=== PATIENT | female | born 1990 | race American Indian/Alaskan Native ===

== ENCOUNTER 2020-07-18 13:03 | Emergency (ER) | payer SELFPAY ==
[2020-07-18 14:03] VITALS: BP 128/86
--- NOTE | 2020-07-18 14:19 | Emergency Department Report ---
ED HPI - General Chief complaint: Urogenital-Female Stated complaint: 17 WKS PREG LEAKING Source: patient Mode of arrival: Ambulatory Limitations: No Limitations - History of Present Illness Initial comments: 29-year-old -[place] female that is 1 para 0 reports that she is 17 weeks presents to the emergency room stating she felt a gush of liqu id running down her leg. Patient states that she was in the shower and had voided prior to going to get in the shower. Patient states that the discharge was clear. Patient denies any vaginal bleeding denies any abdominal cramping. This happened just 1 hour prior to arrival. Her last menstrual period was 03/22/2020. Patient states she has a past medical history of anxiety and takes Prozac. Patient states that she takes Zyrtec Singulair probiotics and is currently being treated with metronidazole for bacterial vaginosis. Patient reports her EMS DIRECTOR doctor is Dr. Barlow at [facility]. 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 Number of weeks : 17 OB History - Current : no complications Last menstrual period: 03/22/20 Pre-sugey care: followed by OB ([place]) - Related Data : 1 Allergies Allergy/AdvReac Type Severity Reaction Status Date / Time No Known Allergies Allergy Unverified 07/18/20 13:12 ED Review of Systems ROS: Stated complaint: 17 WKS PREG LEAKING Other details as noted in HPI ED Past Medical Hx - Past Medical History Previous Medical History?: No - Surgical History Past Surgical History?: No - Social History Smoking Status: Never Smoker Substance Use Type: None ED Physical Exam - General Limitations: No Limitations General appearance: alert, in no apparent distress - Head Head exam: Present: atraumatic, normocephalic - Eye Eye exam: Present: normal appearance - ENT ENT exam: Present: mucous membranes moist - Neck Neck exam: Present: normal inspection, full ROM - Cardiovascular Cardiovascular Exam: Present: regular rate, normal rhythm. Absent: systolic murmur, diastolic murmur, rubs, gallop - GI/Abdominal GI/Abdominal exam: Present: soft. Absent: distended, tenderness, guarding - Extremities Exam Extremities exam: Present: normal inspection, full ROM - Back Exam Back exam: Present: normal inspection, full ROM - Neurological Exam Neurological exam: Present: alert, oriented X3, normal gait - Psychiatric Psychiatric exam: Present: normal affect, normal mood - Skin Skin exam: Present: warm, dry, intact, normal color. Absent: rash ED Course Vital Signs 07/18/20 14:01 Temperature 98.2 F Pulse Rate 89 Respiratory 16 Rate Blood Pressure 128/86 O2 Sat by Pulse 98 Oximetry ED Medical Decision Making - Lab Data Result diagrams: 07/18/20 14:14 07/18/20 14:14 - Radiology Data Radiology results: report reviewed [facility] [address] [place] [address] Ultrasound Report Signed Patient: CLARE MANZANO MR#: [id number] : 1990 Acct:[id number] Age/Sex: 29 / F ADM Date: 07/18/20 Loc: ED Attending Dr: Ordering Physician: JUAN ROBERTSON Date of Service: 07/18/20 Procedure(s): US OB >= 14 weeks Fetus Accession Number(s): [id number] cc: JUAN ROBERTSON ULTRASOUND OBSTETRIC INDICATION / CLINICAL INFORMATION: , felt gush of clear fluids. Clinical Gestational Age (GA): 16.6 weeks.days TECHNIQUE: Transabdominal. COMPARISON: None available. FINDINGS: There is a single intrauterine . Biparietal Diameter = 3.9 cm = 17.5 weeks.days Head Circumference = 14.2 cm = 17.3 weeks.days Abdominal Circumference = 11.1 cm = 16.6 weeks.days Femur Length = 2.4 cm = 17.2 weeks.days Average Ultrasound Age (AUA) = 17.2 weeks.days Heart Rate: 144 beats per minute. Estimated Weight in grams (if calculated): 184 Estimated Weight Growth Percentile (if calculated): Not calculated Position: breech. Cervix: closed. Length in cm (if measured): 3.7 Placenta: posterior and free of the os. Amniotic Fluid Volume: normal Amniotic Fluid Index (BRIGIDA) in cm (if calculated): Not calculated. Maternal Adnexa: Not visualized. IMPRESSION: 1. Single, living intrauterine with estimated sonographic age of 17.2 weeks.days 2. No acute sonographic abnormality. Signer Name: Star Jeffers MD Signed: 07/18/2020 3:26 PM Workstation Name: [id number] Transcribed By: DT Dictated By: Nick Jeffers MD Electronically Authenticated By: Nick Jeffers MD Signed Date/Time: 07/18/201525 DD/ 23 TD/TT: - Medical Decision Making 29-year-old -[place] female that is 1 para 0 reports that she is 17 weeks presents to the emergency room stating she felt a gush of liquid running down her leg. Patient states that she was in the shower and had voided prior to going to get in the shower. Patient states that the discharge was clear. Patient denies any vaginal bleeding denies any abdominal cramping. This happened just 1 hour prior to arrival. Her last menstrual period was 03/22/2020. Patient states she has a past medical history of anxiety and takes Prozac. Patient states that she takes Zyrtec Singulair probiotics and is currently being treated with metronidazole for bacterial vaginosis. Patient reports her EMS DIRECTOR doctor is Dr. Barlow at [facility]. CBC within normal limits hCG 9600s. Ultrasound shows a gestational 17 weeks and 2 days with no abnormalities. Urinalysis was negative for any acute findings. Patient is to follow-up with her EMS DIRECTOR in the next 2 to 3 days. Critical care attestation.: If time is entered above; I have spent that time in minutes in the direct care of this critically ill patient, excluding procedure time. ED Disposition Clinical Impression: Concern about complication without diagnosis Disposition: -01 TO HOME OR SELFCARE Is pt being admited?: No Does the pt Need Aspirin: No Condition: Stable Additional Instructions: Labs are all within normal limits. Ultrasound shows a 17-week 2-day with no acute abnormalities. I recommend for you to follow-up with your EMS DIRECTOR in the next 2 to 3 days for reevaluation. Referrals: ALEKSANDR PLASENCIA MD [Staff Physician] - 3-5 Days Forms: Work/School Release Form(ED)
[2020-07-18 14:41] LABS: Bacteria,Urine 1+ /HPF (Negative); Bilirubin,Urine NEG (Negative); Blood,Urine NEG (Negative); Color,Urine Yellow (Yellow); Mucus,Urine FEW /HPF; Protein,Urine <15 mg/dL mg/dL (Negative); Urobilinogen,Urine < 2.0 mg/dL (<2.0)
[2020-07-18 14:50] LABS: Basophils % (Auto) 0.2 % (0.0-1.8); Eosinophils % (Auto) 0.3 % (0.0-4.3); Hematocrit 34.7 % (30.3-42.9); Hemoglobin 11.4 gm/dl (10.1-14.3); Lymphocytes # (Auto) 1.6 K/mm3 (1.2-5.4); Lymphocytes % (Auto) 15.5 % (13.4-35.0); Mean Corpuscular HGB Conc 33 % (30-34); Mean Corpuscular Volume 81 fl (79-97); Monocytes # (Auto) 0.5 K/mm3 (0.0-0.8); Monocytes % (Auto) 4.6 % (0.0-7.3); Platelet Count 252 K/mm3 (140-440); Red Cell Distribution Width 14.2 % (13.2-15.2)
[2020-07-18 15:05] LABS: Alanine Aminotransferase 19 units/L (7-56); Albumin 4.1 g/dL (3.9-5); Blood Urea Nitrogen 8 mg/dL (7-17); Calcium 9.1 mg/dL (8.4-10.2); Hemolysis Index 0
[2020-07-18 15:10] LABS: BUN/Creatinine Ratio 16
--- NOTE | 2020-07-18 15:31 | Ultrasound Report ---
ULTRASOUND OBSTETRIC INDICATION / CLINICAL INFORMATION: , felt gush of clear fluids. Clinical Gestational Age (GA): 16.6 weeks.days TECHNIQUE: Transabdominal. COMPARISON: None available. FINDINGS: There is a single intrauterine . Biparietal Diameter = 3.9 cm = 17.5 weeks.days Head Circumference = 14.2 cm = 17.3 weeks.days Abdominal Circumference = 11.1 cm = 16.6 weeks.days Femur Length = 2.4 cm = 17.2 weeks.days Average Ultrasound Age (AUA) = 17.2 weeks.days Heart Rate: 144 beats per minute. Estimated Weight in grams (if calculated): 184 Estimated Weight Growth Percentile (if calculated): Not calculated Position: breech. Cervix: closed. Length in cm (if measured): 3.7 Placenta: posterior and free of the os. Amniotic Fluid Volume: normal Amniotic Fluid Index (BRIGIDA) in cm (if calculated): Not calculated. Maternal Adnexa: Not visualized. IMPRESSION: 1. Single, living intrauterine with estimated sonographic age of 17.2 weeks.days 2. No acute sonographic abnormality. Signer Name: Star Jeffers MD Signed: 07/18/2020 3:26 PM Workstation Name: [id number]
== END 2020-07-18 16:11 | disposition home or self-care (01) ==
LOC: ED 13:03
DX: O26.892 Other specified pregnancy related conditions, second trimester (principal); Z3A.17 17 weeks gestation of pregnancy
CPT/HCPCS: 36415; 76805; 80053; 81001; 84702; 85025; 86900; 86901

== ENCOUNTER 2020-12-12 05:20 | Inpatient (IN) | payer OTHER ==
[~2020-12-12 05:20] MED LIST: GENTAMICIN/NS 80 MG/100 ML 100 ML IV SCH
[2020-12-12] MEDS ORDERED: LACTATED RINGERS 1,000 ML ONE (06:14)
[2020-12-12] MEDS ORDERED: ePHEDrine SULFATE 50 MG/1 ML INJ IV PRN ×3 (06:37→11:21)
[2020-12-12] MEDS ORDERED: LIDOCAINE (2%) 20 MG/1 ML VIAL 20 ML MDV INFILTRATI ONE (06:37)
[2020-12-12] MEDS ORDERED: MINERAL OIL 30 ML ORAL LIQD PO PRN ×2 (06:37→22:00)
[2020-12-12] MEDS ORDERED: TERBUTALINE 1 MG/1 ML INJ SUB-Q PRN ×2 (06:37→07:36)
[2020-12-12] MEDS ORDERED: AMPICILLIN/NS 2 GM/100 ML 2 GM/100 ML BAG IV ONE (06:37)
[2020-12-12] MEDS ORDERED: LACTATED RINGERS 1,000 ML IV SCH (06:45)
[2020-12-12 06:48] LABS: Hematocrit 29.3 % (30.3-42.9); Hemoglobin 9.4 gm/dl (10.1-14.3); Mean Corpuscular HGB Conc 32 % (30-34); Mean Corpuscular Volume 79 fl (79-97); Platelet Count 181 K/mm3 (140-440); Red Cell Distribution Width 16.5 % (13.2-15.2)
[2020-12-12] MEDS ORDERED: OXYTOCIN DRIP 30 UNITS/500 ML BAG IV SCH ×4 (07:00→08:00)
[2020-12-12] MEDS ORDERED: LIDOCAINE (2%) 20 MG/1 ML VIAL 20 ML MDV INFILTRATI NR (07:36)
[2020-12-12] MEDS ORDERED: ONDANSETRON 4 MG/2 ML INJ IV PRN (07:36)
[2020-12-12] MEDS ORDERED: PROMETHAZINE 25 MG TAB PO PRN (07:36)
[2020-12-12] MEDS ORDERED: NalbUPHINE 10 MG/1 ML INJ IV PRN (07:36)
--- NOTE | 2020-12-12 07:50 | History and Physical Report ---
History of Present Illness Date of examination: 12/12/20 Date of admission: 12/12/20 06:37 Chief complaint: leakage of fluid this morning History of present illness: at 37.5wks by LMP c/w U/Sound and EDC 12/27/20. Pt presented to triage with LOF this morning, denies vag bleed and headache. Pt admits to movement and feeling contractions. When asked pt admits to small cardiac murmur, anxiety/depression without any suicidal ideation or hallucination, anemia and started taking valtrex med 2days ago without any symptoms of an outbreak. Pt denies any history of asthma. 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, Anemia and small cardiac murmur without symptoms, Low vitamin D and given supplement) Past Surgical History: no surgical history Family/Genetic History: none Social history: no significant social history - Obstetrical History : 1 Number of Living Children: 0 Medications and Allergies Allergies Allergy/AdvReac Type Severity Reaction Status Date / Time No Known Allergies Allergy Unverified 07/18/20 13:12 Home Medications Medication Instructions Recorded Confirmed Last Taken Type [facility] Vitamins Tablet 12/12/20 12/11/20 History FLUoxetine HCL [Prozac] 20 mg PO DAILY 12/12/20 12/12/20 12/11/20 History Montelukast [Singulair] 10 mg PO DAILY 12/12/20 12/12/20 12/11/20 History Valacyclovir HCl [Valtrex] 1,000 mg PO DAILY 12/12/20 12/12/20 12/11/20 History Active Meds: Active Medications Ephedrine Sulfate (Ephedrine Sulfate 50 Mg/1 Ml Inj) 10 mg IV Q2M PRN PRN Reason: Hypotension Ephedrine Sulfate (Ephedrine Sulfate 50 Mg/1 Ml Inj) 10 mg IV Q2M PRN PRN Reason: Hypotension Oxytocin/Sodium Chloride (Pitocin/Ns 30 Unit/500ml) 30 units in 500 mls @ 2 mls/hr IV TITR DIPIKA; Protocol Last Admin: 12/12/20 07:24 Dose: 2 mls/hr, 2 mls/hr Documented by: Lactated Ringer's (Lactated Ringers) 1,000 mls @ 125 mls/hr IV DIRECT DIPIKA Oxytocin/Sodium Chloride (Pitocin/Ns 30 Unit/500ml) 30 units in 500 mls @ 40 mls/hr IV TITR DIPIKA; Protocol Ampicillin Sodium (Ampicillin/Ns 1 Gm/50 Ml) 1 gm in 50 mls @ 100 mls/hr IV Q4H DIPIKA; Protocol Oxytocin/Sodium Chloride (Pitocin/Ns 30 Unit/500ml) 30 units in 500 mls @ 2 mls/hr IV TITR DIPIKA; Protocol Lactated Ringer's (Lactated Ringers) 1,000 mls @ 125 mls/hr IV DIRECT DIPIKA Oxytocin/Sodium Chloride (Pitocin/Ns 30 Unit/500ml) 30 units in 500 mls @ 40 mls/hr IV TITR DIPIKA; Protocol Lidocaine (Lidocaine (2%) 20 Mg/1 Ml Vial 20 Ml Mdv) 20 ml INFILTRATI ONCE ONE Stop: 12/12/20 07:37 Mineral Oil (Mineral Oil 30 Ml Oral Liqd) 30 ml PO QHS PRN PRN Reason: Constipation Mineral Oil (Mineral Oil 30 Ml Oral Liqd) 30 ml PO QHS PRN PRN Reason: Constipation Terbutaline Sulfate (Terbutaline 1 Mg/1 Ml Inj) 0.25 mg SUB-Q ONCE PRN PRN Reason: Hyperstimulation/Hypertonicity Terbutaline Sulfate (Terbutaline 1 Mg/1 Ml Inj) 0.25 mg SUB-Q ONCE PRN PRN Reason: Hyperstimulation/Hypertonicity Review of Systems All systems: negative (SROM clear fluid this morning) - Vital Signs Vital signs: Vital Signs Pulse BP 92 H 144/93 12/12/20 05:51 12/12/20 05:51 Temp Pulse Resp BP Pulse Ox 98.1 F 82 16 130/80 12/12/20 06:11 12/12/20 06:33 12/12/20 06:11 12/12/20 06:33 - Physical Exam Breasts: Positive: deferred Cardiovascular: Regular rate Lungs: Positive: Normal air movement Abdomen: Positive: soft Genitourinary (Female): Positive: normal external genitalia Vulva: both: normal Vagina: Positive: normal moisture Uterus: Positive: enlarged (non-tender gravid) Extremities: Positive: normal - Obstetrical FHR: category 1 Uterine Contraction Monitor Mode: External Uterine Contraction Pattern: Irregular (ocassional) Results Result Diagrams: 12/12/20 06:29 Abnormal lab results 12/12/20 Range/Units 06:29 Hgb 9.4 L (10.1-14.3) gm/dl Hct 29.3 L (30.3-42.9) % MCH 26 L (28-32) pg RDW 16.5 H (13.2-15.2) % All other labs normal. 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 Admit to labor and delivery, will add PIH labs with BP 130/80's and do rou audi type and screen, covid testing 2. Augment with pitocin after giving 1st dose of Amp for GBS+ 3. May have nubain and epidural later when desired 4. Will continue prozac for mood stability 5. May resume allergy med post delivery 6. Continuous oxygen sat while in labor with history of cardiac murmur 7. Continue valtrex med suppression All questions encouraged and answered. Expect
[2020-12-12] MEDS: LACTATED RINGERS 1,000 ML IV SCH ×2 (08:37→11:45)
[2020-12-12] MEDS: valACYclovir 500 MG TAB PO SCH (09:58)
[2020-12-12] MEDS: FLUoxetine 20 MG CAP PO SCH (09:58)
[2020-12-12] MEDS ORDERED: NON-FORMULARY EACH (Valacyclovir Hcl [Valtrex] 1,000 MG Tablet) PO SCH (10:00)
--- NOTE | 2020-12-12 10:07 | Progress Note ---
Assessment and Plan - Patient Problems (1) 37 weeks gestation of Current Visit: Yes Status: Acute Plan to address problem: Continue Pitocin titration as tolerated Epidural as desired per orders Anticipate (2) Positive GBS test Current Visit: Yes Status: Acute Plan to address problem: Continue GBS protocol Subjective - Subjective Date of service: 12/12/20 Principal diagnosis: 37 wks gestation Interval history: See admission H & P Patient reports: movement normal, contractions (painful, requesting epidural), no loss of fluid, no vaginal bleeding Objective - Vital Signs Vital Signs: Vital Signs - 12hr 12/12/20 12/12/20 12/12/20 05:51 06:11 06:33 Temperature 98.1 F Pulse Rate 92 H 82 Respiratory 16 Rate Blood Pressure 144/93 130/80 O2 Sat by Pulse Oximetry 12/12/20 12/12/20 12/12/20 08:35 08:40 08:45 Temperature Pulse Rate 98 H 95 H 87 Respiratory Rate Blood Pressure O2 Sat by Pulse 97 98 98 Oximetry 12/12/20 12/12/20 12/12/20 08:50 08:53 09:03 Temperature Pulse Rate 96 H 87 96 H Respiratory Rate Blood Pressure 132/80 O2 Sat by Pulse 97 98 Oximetry 12/12/20 12/12/20 12/12/20 09:08 09:13 09:18 Temperature Pulse Rate 86 102 H 99 H Respiratory Rate Blood Pressure O2 Sat by Pulse 98 99 99 Oximetry 12/12/20 12/12/20 12/12/20 09:23 09:28 09:33 Temperature Pulse Rate 80 83 106 H Respiratory Rate Blood Pressure O2 Sat by Pulse 98 98 99 Oximetry 12/12/20 12/12/20 12/12/20 09:38 09:43 09:44 Temperature Pulse Rate 90 87 91 H Respiratory Rate Blood Pressure O2 Sat by Pulse 97 97 94 Oximetry 12/12/20 12/12/20 12/12/20 09:48 09:53 09:58 Temperature Pulse Rate 94 H 87 93 H Respiratory Rate Blood Pressure O2 Sat by Pulse 99 98 99 Oximetry - Exam Breasts: deferred Cardiovascular: Regular rate Lungs: Normal air movement Uterus: Present: other (enlarged, S=D) FHR: category 1 Uterine Contraction Monitor Mode: External Cervical Dilatation: 3.5 (vertex) Cervical Effacement Percentage: 70 station: -1 Uterine Contraction Frequency (min): 3-5 Uterine Contraction Pattern: Irregular Uterine Tone Measurement Phase: Resting Uterine Contraction Intensity: Mild - Labs Labs: Abnormal Labs 12/12/20 06:29 Hgb 9.4 L Hct 29.3 L MCH 26 L RDW 16.5 H Laboratory Results - last 24 hr 12/12/20 12/12/20 12/12/20 06:29 06:29 06:29 WBC 10.3 RBC 3.70 Hgb 9.4 L Hct 29.3 L MCV 79 MCH 26 L MCHC 32 RDW 16.5 H Plt Count 181 Syphilis IgG Antibody Nonreactive Blood Type A POSITIVE Antibody Screen Negative
[2020-12-12] MEDS ORDERED: AMPICILLIN/NS 1 GM/50 ML 1 GM/50 ML BAG IV SCH (10:38)
[2020-12-12] MEDS ORDERED: NALOXONE 2 MG/2 ML INJ IV PRN (11:21)
--- NOTE | 2020-12-12 11:21 | Anesthesia Consultation ---
Anesthesia Consult and Med Hx Date of service: 12/12/20 - Airway Anesthetic Teeth Evaluation: Good ROM Head & Neck: Adequate Mental/Hyoid Distance: Adequate Mallampati Class: Class II Intubation Access Assessment: Good - Pulmonary Exam CTA: Yes - Cardiac Exam Cardiac Exam: RRR - Pre-Operative Health Status ASA Pre-Surgery Classification: ASA2 Proposed Anesthetic Plan: Epidural - Pulmonary Hx Smoking: No Hx Asthma: No Hx Respiratory Symptoms: No SOB: No COPD: No Home Oxygen Therapy: No Hx Pneumonia: No Hx Sleep Apnea: No - Cardiovascular System Hx Hypertension: No Hx Coronary Artery Disease: No Hx Heart Attack/AMI: No Hx Angina: No Hx Percutaneous Transluminal Coronary Angioplasty (PTCA): No Hx Cardia Arrhythmia: No Hx Pacemaker: No Hx Internal Defibrillator: No Hx Valvular Heart Disease: No Hx Heart Murmur: No Hx Peripheral Vascular Disease: No - Central Nervous System Hx Neuromuscular Disorder: No Hx Seizures: No CVA: No Hx Back Pain: No Hx Psychiatric Problems: No - Gastrointestinal Hx Ulcer: No Hx Gastroesophageal Reflux Disease: No - Endocrine Hx Renal Disease: No Hx End Stage Renal Disease: No Hx Cirrhosis: No Hx Liver Disease: No Hx Insulin Dependent Diabetes: No Hx Non-Insulin Dependent Diabetes: No Hx Thyroid Disease: No Hx Hypothyroidism: No Hx Hyperthyroidism: No - Hematic Hx Anemia: Yes Hx Sickle Cell Disease: No - Other Systems Hx Alcohol Use: No Hx Substance Use: No Hx Cancer: No Hx Obesity: Yes
[2020-12-12] MEDS: AMPICILLIN/NS 1 GM/50 ML 1 GM/50 ML BAG IV SCH ×3 (11:44→20:08)
[2020-12-12] MEDS: fentaNYL-BUPIV 2 MCG/ML-0.125% 200 MCG/100 ML BAG EPIDURAL SCH ×2 (11:45→19:55)
[2020-12-12] MEDS ORDERED: FLU VACC QUAD 2020-2021 (6 months +)/PF 60 0.5 ML SYRINGE IM ONE (12:00)
--- NOTE | 2020-12-12 16:02 | Progress Note ---
Assessment and Plan - Patient Problems (1) 37 weeks gestation of Current Visit: Yes Status: Acute Plan to address problem: Continue Pitocin titration as tolerated Anticipate (2) Positive GBS test Current Visit: Yes Status: Acute Plan to address problem: Continue GBS protocol Subjective - Subjective Date of service: 12/12/20 Principal diagnosis: 37 wks gestation Interval history: See admission H & P Patient reports: movement normal, contractions (painful, requesting epidural), no loss of fluid, no vaginal bleeding Objective - Vital Signs Vital Signs: Vital Signs - 12hr 12/12/20 12/12/20 12/12/20 05:51 06:11 06:33 Temperature 98.1 F Pulse Rate 92 H 82 Respiratory 16 Rate Blood Pressure 144/93 130/80 Blood Pressure [Left] O2 Sat by Pulse Oximetry 12/12/20 12/12/20 12/12/20 08:35 08:40 08:45 Temperature Pulse Rate 98 H 95 H 87 Respiratory Rate Blood Pressure Blood Pressure [Left] O2 Sat by Pulse 97 98 98 Oximetry 12/12/20 12/12/20 12/12/20 08:50 08:53 09:03 Temperature Pulse Rate 96 H 87 96 H Respiratory Rate Blood Pressure 132/80 Blood Pressure [Left] O2 Sat by Pulse 97 98 Oximetry 12/12/20 12/12/20 12/12/20 09:08 09:13 09:18 Temperature Pulse Rate 86 102 H 99 H Respiratory Rate Blood Pressure Blood Pressure [Left] O2 Sat by Pulse 98 99 99 Oximetry 12/12/20 12/12/20 12/12/20 09:23 09:28 09:33 Temperature Pulse Rate 80 83 106 H Respiratory Rate Blood Pressure Blood Pressure [Left] O2 Sat by Pulse 98 98 99 Oximetry 12/12/20 12/12/20 12/12/20 09:38 09:43 09:44 Temperature Pulse Rate 90 87 91 H Respiratory Rate Blood Pressure Blood Pressure [Left] O2 Sat by Pulse 97 97 94 Oximetry 12/12/20 12/12/20 12/12/20 09:48 09:53 09:58 Temperature Pulse Rate 94 H 87 93 H Respiratory Rate Blood Pressure Blood Pressure [Left] O2 Sat by Pulse 99 98 99 Oximetry 12/12/20 12/12/20 12/12/20 10:03 10:08 10:11 Temperature Pulse Rate 92 H 83 73 Respiratory Rate Blood Pressure Blood Pressure [Left] O2 Sat by Pulse 98 99 90 Oximetry 12/12/20 12/12/20 12/12/20 10:13 10:18 10:21 Temperature 97.4 F L Pulse Rate 88 95 H 81 Respiratory 18 Rate Blood Pressure 141/85 Blood Pressure 141/85 [Left] O2 Sat by Pulse 99 99 Oximetry 12/12/20 12/12/20 12/12/20 10:23 10:28 10:33 Temperature Pulse Rate 83 86 85 Respiratory Rate Blood Pressure Blood Pressure [Left] O2 Sat by Pulse 99 98 99 Oximetry 12/12/20 12/12/20 12/12/20 10:34 10:37 10:38 Temperature Pulse Rate 86 83 102 H Respiratory Rate Blood Pressure 142/86 Blood Pressure [Left] O2 Sat by Pulse 93 100 Oximetry 12/12/20 12/12/20 12/12/20 10:39 10:43 10:48 Temperature Pulse Rate 89 90 98 H Respiratory Rate Blood Pressure Blood Pressure [Left] O2 Sat by Pulse 92 98 99 Oximetry 12/12/20 12/12/20 12/12/20 10:53 10:56 10:58 Temperature Pulse Rate 97 H 74 94 H Respiratory Rate Blood Pressure 143/78 Blood Pressure [Left] O2 Sat by Pulse 98 92 98 Oximetry 12/12/20 12/12/20 12/12/20 10:59 11:01 11:03 Temperature Pulse Rate 112 H 96 H 130 H Respiratory Rate Blood Pressure 154/90 151/83 152/84 Blood Pressure [Left] O2 Sat by Pulse 98 Oximetry 12/12/20 12/12/20 12/12/20 11:05 11:07 11:08 Temperature Pulse Rate 100 H 90 89 Respiratory Rate Blood Pressure 152/81 145/73 Blood Pressure [Left] O2 Sat by Pulse 98 Oximetry 12/12/20 12/12/20 12/12/20 11:09 11:11 11:13 Temperature Pulse Rate 86 86 97 H Respiratory Rate Blood Pressure 148/75 147/73 151/72 Blood Pressure [Left] O2 Sat by Pulse 97 Oximetry 12/12/20 12/12/20 12/12/20 11:15 11:17 11:18 Temperature Pulse Rate 87 90 86 Respiratory Rate Blood Pressure 131/63 140/83 Blood Pressure [Left] O2 Sat by Pulse 98 Oximetry 12/12/20 12/12/20 12/12/20 11:19 11:21 11:23 Temperature Pulse Rate 83 84 83 Respiratory Rate Blood Pressure 118/63 126/69 127/60 Blood Pressure [Left] O2 Sat by Pulse 98 Oximetry 12/12/20 12/12/20 12/12/20 11:25 11:27 11:28 Temperature Pulse Rate 88 87 83 Respiratory Rate Blood Pressure 119/62 118/67 Blood Pressure [Left] O2 Sat by Pulse 98 Oximetry 12/12/20 12/12/20 12/12/20 11:29 11:31 11:33 Temperature Pulse Rate 76 78 81 Respiratory Rate Blood Pressure 116/71 121/69 123/66 Blood Pressure [Left] O2 Sat by Pulse 98 Oximetry 12/12/20 12/12/20 12/12/20 11:35 11:37 11:38 Temperature Pulse Rate 76 78 74 Respiratory Rate Blood Pressure 125/70 124/69 Blood Pressure [Left] O2 Sat by Pulse 97 Oximetry 12/12/20 12/12/20 12/12/20 11:39 11:41 11:43 Temperature Pulse Rate 76 71 76 Respiratory Rate Blood Pressure 122/66 123/64 121/63 Blood Pressure [Left] O2 Sat by Pulse 97 Oximetry 12/12/20 12/12/20 12/12/20 11:45 11:48 11:53 Temperature Pulse Rate 71 75 76 Respiratory Rate Blood Pressure 120/70 Blood Pressure [Left] O2 Sat by Pulse 97 97 Oximetry 12/12/20 12/12/20 12/12/20 11:58 12:03 12:07 Temperature Pulse Rate 75 81 82 Respiratory Rate Blood Pressure Blood Pressure [Left] O2 Sat by Pulse 97 96 93 Oximetry 12/12/20 12/12/20 12/12/20 12:08 12:13 12:18 Temperature Pulse Rate 86 79 77 Respiratory Rate Blood Pressure Blood Pressure [Left] O2 Sat by Pulse 96 97 96 Oximetry 12/12/20 12/12/20 12/12/20 12:23 12:24 12:28 Temperature Pulse Rate 84 86 82 Respiratory Rate Blood Pressure Blood Pressure [Left] O2 Sat by Pulse 96 94 96 Oximetry 12/12/20 12/12/20 12/12/20 12:33 12:38 12:43 Temperature Pulse Rate 85 81 87 Respiratory Rate Blood Pressure Blood Pressure [Left] O2 Sat by Pulse 97 97 96 Oximetry 12/12/20 12/12/20 12/12/20 12:46 12:48 12:53 Temperature Pulse Rate 89 82 83 Respiratory Rate Blood Pressure 105/71 Blood Pressure [Left] O2 Sat by Pulse 94 97 98 Oximetry 12/12/20 12/12/20 12/12/20 12:58 13:03 13:08 Temperature Pulse Rate 84 83 85 Respiratory Rate Blood Pressure Blood Pressure [Left] O2 Sat by Pulse 97 98 97 Oximetry 12/12/20 12/12/20 12/12/20 13:13 13:18 13:23 Temperature Pulse Rate 76 87 82 Respiratory Rate Blood Pressure Blood Pressure [Left] O2 Sat by Pulse 98 99 97 Oximetry 12/12/20 12/12/20 12/12/20 13:28 13:33 13:38 Temperature Pulse Rate 78 78 79 Respiratory Rate Blood Pressure Blood Pressure [Left] O2 Sat by Pulse 97 98 97 Oximetry 12/12/20 12/12/20 12/12/20 13:43 13:45 13:48 Temperature Pulse Rate 76 77 75 Respiratory Rate Blood Pressure 111/58 Blood Pressure [Left] O2 Sat by Pulse 97 98 Oximetry 12/12/20 12/12/20 12/12/20 13:53 13:58 14:03 Temperature Pulse Rate 95 H 75 72 Respiratory Rate Blood Pressure Blood Pressure [Left] O2 Sat by Pulse 98 98 98 Oximetry 12/12/20 12/12/20 12/12/20 14:08 14:13 14:18 Temperature Pulse Rate 81 92 H 78 Respiratory Rate Blood Pressure Blood Pressure [Left] O2 Sat by Pulse 98 98 98 Oximetry 12/12/20 12/12/20 12/12/20 14:23 14:28 14:33 Temperature Pulse Rate 71 75 73 Respiratory Rate Blood Pressure Blood Pressure [Left] O2 Sat by Pulse 99 97 98 Oximetry 12/12/20 12/12/20 12/12/20 14:38 14:43 14:46 Temperature 98 F Pulse Rate 75 73 73 Respiratory 18 Rate Blood Pressure 130/76 Blood Pressure 130/76 [Left] O2 Sat by Pulse 99 98 98 Oximetry 12/12/20 12/12/20 12/12/20 14:48 14:53 14:58 Temperature Pulse Rate 75 80 74 Respiratory Rate Blood Pressure Blood Pressure [Left] O2 Sat by Pulse 98 98 97 Oximetry 12/12/20 12/12/20 12/12/20 15:03 15:08 15:13 Temperature Pulse Rate 74 75 73 Respiratory Rate Blood Pressure Blood Pressure [Left] O2 Sat by Pulse 96 97 98 Oximetry 12/12/20 12/12/20 12/12/20 15:18 15:23 15:28 Temperature Pulse Rate 76 71 70 Respiratory Rate Blood Pressure Blood Pressure [Left] O2 Sat by Pulse 98 97 97 Oximetry 12/12/20 12/12/20 12/12/20 15:33 15:38 15:43 Temperature Pulse Rate 80 76 76 Respiratory Rate Blood Pressure Blood Pressure [Left] O2 Sat by Pulse 98 97 97 Oximetry 12/12/20 12/12/20 12/12/20 15:46 15:48 15:53 Temperature Pulse Rate 78 88 80 Respiratory Rate Blood Pressure 124/71 Blood Pressure [Left] O2 Sat by Pulse 96 97 Oximetry 12/12/20 15:58 Temperature Pulse Rate 88 Respiratory Rate Blood Pressure Blood Pressure [Left] O2 Sat by Pulse 97 Oximetry - Exam Breasts: deferred Cardiovascular: Regular rate Lungs: Normal air movement FHR: category 1 Uterine Contraction Monitor Mode: External Cervical Dilatation: 6 (per RN) Cervical Effacement Percentage: 70 (Pitocin @ 14mu/min) station: -1 Uterine Contraction Frequency (min): 2-3 Uterine Contraction Pattern: Regular Uterine Tone Measurement Phase: Resting Uterine Contraction Intensity: Moderate - Labs Labs: Abnormal Labs 12/12/20 06:29 Hgb 9.4 L Hct 29.3 L MCH 26 L RDW 16.5 H Laboratory Results - last 24 hr 12/12/20 12/12/20 12/12/20 06:29 06:29 06:29 WBC 10.3 RBC 3.70 Hgb 9.4 L Hct 29.3 L MCV 79 MCH 26 L MCHC 32 RDW 16.5 H Plt Count 181 Syphilis IgG Antibody Nonreactive Coronavirus (PCR) Blood Type A POSITIVE Antibody Screen Negative 12/12/20 Unknown WBC RBC Hgb Hct MCV MCH MCHC RDW Plt Count Syphilis IgG Antibody Coronavirus (PCR) Negative Blood Type Antibody Screen
[2020-12-12] MEDS ORDERED: GENTAMICIN/NS 80 MG/100 ML 100 ML IV SCH (23:45)
[2020-12-13] MEDS: AMPICILLIN/NS 1 GM/50 ML 1 GM/50 ML BAG IV SCH (00:12)
[2020-12-13] MEDS ORDERED: FAMOTIDINE 20 MG/2 ML INJ IV ONE (01:10)
[2020-12-13] MEDS ORDERED: LACTATED RINGERS 1,000 ML IV SCH (01:15)
[2020-12-13] MEDS ORDERED: LIDOCAINE (2%) 20 MG/1 ML VIAL 20 ML MDV INFILTRATI ONE (01:17)
[2020-12-13] MEDS ORDERED: LIDOCAINE MPF (2%) 20 MG/1 ML VIAL 5 ML ONE (01:21)
[2020-12-13] MEDS ORDERED: LIDOCAINE 2%/EPINEPHRINE 1:200,000 VIAL (20 ML) INFILTRATI ONE (01:21)
--- NOTE | 2020-12-13 01:21 | Progress Note ---
Assessment and Plan - Patient Problems (1) 37 weeks gestation of Current Visit: Yes Status: Acute Plan to address problem: Pt complete since 2239 Has been pushing for the past 3hrs Category 1 heart tracing Fetus remains at 0 station with no decent noted Maternal pushing efforts fair and repeatedly asking for C/S Consulted with Dr. Hood and made aware of pts wishes Orders received to prep for C/S (2) Positive GBS test Current Visit: Yes Status: Acute Plan to address problem: Continue GBS protocol Subjective - Subjective Date of service: 12/13/20 Principal diagnosis: 37 wks gestation Interval history: See admission H & P Patient reports: loss of fluid (clear), movement normal, contractions (painful, requesting epidural), no vaginal bleeding Objective - Vital Signs Vital Signs: Vital Signs - 12hr 12/12/20 12/12/20 12/12/20 13:18 13:23 13:28 Temperature Pulse Rate 87 82 78 Respiratory Rate Blood Pressure Blood Pressure [Left] O2 Sat by Pulse 99 97 97 Oximetry 12/12/20 12/12/20 12/12/20 13:33 13:38 13:43 Temperature Pulse Rate 78 79 76 Respiratory Rate Blood Pressure Blood Pressure [Left] O2 Sat by Pulse 98 97 97 Oximetry 12/12/20 12/12/20 12/12/20 13:45 13:48 13:53 Temperature Pulse Rate 77 75 95 H Respiratory Rate Blood Pressure 111/58 Blood Pressure [Left] O2 Sat by Pulse 98 98 Oximetry 12/12/20 12/12/20 12/12/20 13:58 14:03 14:08 Temperature Pulse Rate 75 72 81 Respiratory Rate Blood Pressure Blood Pressure [Left] O2 Sat by Pulse 98 98 98 Oximetry 12/12/20 12/12/20 12/12/20 14:13 14:18 14:23 Temperature Pulse Rate 92 H 78 71 Respiratory Rate Blood Pressure Blood Pressure [Left] O2 Sat by Pulse 98 98 99 Oximetry 12/12/20 12/12/20 12/12/20 14:28 14:33 14:38 Temperature Pulse Rate 75 73 75 Respiratory Rate Blood Pressure Blood Pressure [Left] O2 Sat by Pulse 97 98 99 Oximetry 12/12/20 12/12/20 12/12/20 14:43 14:46 14:48 Temperature 98 F Pulse Rate 73 73 75 Respiratory 18 Rate Blood Pressure 130/76 Blood Pressure 130/76 [Left] O2 Sat by Pulse 98 98 98 Oximetry 12/12/20 12/12/20 12/12/20 14:53 14:58 15:03 Temperature Pulse Rate 80 74 74 Respiratory Rate Blood Pressure Blood Pressure [Left] O2 Sat by Pulse 98 97 96 Oximetry 12/12/20 12/12/20 12/12/20 15:08 15:13 15:18 Temperature Pulse Rate 75 73 76 Respiratory Rate Blood Pressure Blood Pressure [Left] O2 Sat by Pulse 97 98 98 Oximetry 12/12/20 12/12/20 12/12/20 15:23 15:28 15:33 Temperature Pulse Rate 71 70 80 Respiratory Rate Blood Pressure Blood Pressure [Left] O2 Sat by Pulse 97 97 98 Oximetry 12/12/20 12/12/20 12/12/20 15:38 15:43 15:46 Temperature Pulse Rate 76 76 78 Respiratory Rate Blood Pressure 124/71 Blood Pressure [Left] O2 Sat by Pulse 97 97 Oximetry 12/12/20 12/12/20 12/12/20 15:48 15:53 15:58 Temperature Pulse Rate 88 80 88 Respiratory Rate Blood Pressure Blood Pressure [Left] O2 Sat by Pulse 96 97 97 Oximetry 12/12/20 12/12/20 12/12/20 16:03 16:08 16:13 Temperature Pulse Rate 85 81 81 Respiratory Rate Blood Pressure Blood Pressure [Left] O2 Sat by Pulse 98 98 97 Oximetry 12/12/20 12/12/20 12/12/20 16:18 16:23 16:28 Temperature Pulse Rate 82 84 82 Respiratory Rate Blood Pressure Blood Pressure [Left] O2 Sat by Pulse 98 97 98 Oximetry 12/12/20 12/12/20 12/12/20 16:33 16:38 16:43 Temperature Pulse Rate 88 83 86 Respiratory Rate Blood Pressure Blood Pressure [Left] O2 Sat by Pulse 99 98 99 Oximetry 12/12/20 12/12/20 12/12/20 16:47 16:48 16:53 Temperature Pulse Rate 91 H 101 H 96 H Respiratory Rate Blood Pressure 124/58 Blood Pressure [Left] O2 Sat by Pulse 97 98 Oximetry 12/12/20 12/12/20 12/12/20 16:58 17:03 17:08 Temperature Pulse Rate 90 87 89 Respiratory Rate Blood Pressure Blood Pressure [Left] O2 Sat by Pulse 98 97 97 Oximetry 12/12/20 12/12/20 12/12/20 17:13 17:18 17:23 Temperature Pulse Rate 90 91 H 87 Respiratory Rate Blood Pressure Blood Pressure [Left] O2 Sat by Pulse 97 97 98 Oximetry 12/12/20 12/12/20 12/12/20 17:28 17:33 17:38 Temperature Pulse Rate 89 94 H 87 Respiratory Rate Blood Pressure Blood Pressure [Left] O2 Sat by Pulse 97 97 97 Oximetry 12/12/20 12/12/20 12/12/20 17:43 17:46 17:48 Temperature Pulse Rate 95 H 85 94 H Respiratory Rate Blood Pressure 128/68 Blood Pressure [Left] O2 Sat by Pulse 98 98 Oximetry 12/12/20 12/12/20 12/12/20 17:53 17:58 18:03 Temperature Pulse Rate 81 87 89 Respiratory Rate Blood Pressure Blood Pressure [Left] O2 Sat by Pulse 97 98 98 Oximetry 12/12/20 12/12/20 12/12/20 18:08 18:13 18:18 Temperature Pulse Rate 85 85 87 Respiratory Rate Blood Pressure Blood Pressure [Left] O2 Sat by Pulse 98 98 98 Oximetry 12/12/20 12/12/20 12/12/20 18:23 18:28 18:33 Temperature Pulse Rate 94 H 85 84 Respiratory Rate Blood Pressure Blood Pressure [Left] O2 Sat by Pulse 98 98 97 Oximetry 12/12/20 12/12/20 12/12/20 18:38 18:43 18:47 Temperature Pulse Rate 91 H 89 83 Respiratory Rate Blood Pressure 120/60 Blood Pressure [Left] O2 Sat by Pulse 97 97 Oximetry 12/12/20 12/12/20 12/12/20 18:48 18:53 18:58 Temperature Pulse Rate 86 80 83 Respiratory Rate Blood Pressure Blood Pressure [Left] O2 Sat by Pulse 97 98 98 Oximetry 12/12/20 12/12/20 12/12/20 19:03 19:08 19:13 Temperature Pulse Rate 82 91 H 90 Respiratory Rate Blood Pressure Blood Pressure [Left] O2 Sat by Pulse 98 97 98 Oximetry 12/12/20 12/12/20 12/12/20 19:18 19:20 19:23 Temperature 99.0 F Pulse Rate 85 85 94 H Respiratory 18 Rate Blood Pressure 135/74 Blood Pressure 135/74 [Left] O2 Sat by Pulse 98 99 98 Oximetry 12/12/20 12/12/20 12/12/20 19:28 19:33 19:38 Temperature Pulse Rate 111 H 97 H 91 H Respiratory Rate Blood Pressure Blood Pressure [Left] O2 Sat by Pulse 98 98 99 Oximetry 12/12/20 12/12/20 12/12/20 19:43 19:46 19:48 Temperature Pulse Rate 89 88 90 Respiratory Rate Blood Pressure 133/82 Blood Pressure [Left] O2 Sat by Pulse 98 99 Oximetry 12/12/20 12/12/20 12/12/20 19:53 19:58 20:03 Temperature Pulse Rate 92 H 96 H 89 Respiratory Rate Blood Pressure Blood Pressure [Left] O2 Sat by Pulse 99 99 98 Oximetry 12/12/20 12/12/20 12/12/20 20:08 20:13 20:18 Temperature Pulse Rate 96 H 101 H 98 H Respiratory Rate Blood Pressure Blood Pressure [Left] O2 Sat by Pulse 98 98 99 Oximetry 12/12/20 12/12/20 12/12/20 20:23 20:25 20:28 Temperature Pulse Rate 98 H 98 H 95 H Respiratory Rate Blood Pressure Blood Pressure [Left] O2 Sat by Pulse 98 93 98 Oximetry 12/12/20 12/12/20 12/12/20 20:33 20:38 20:43 Temperature Pulse Rate 99 H 99 H 95 H Respiratory Rate Blood Pressure Blood Pressure [Left] O2 Sat by Pulse 98 98 98 Oximetry 12/12/20 12/12/20 12/12/20 20:45 20:48 20:53 Temperature Pulse Rate 102 H 104 H 105 H Respiratory Rate Blood Pressure 136/83 Blood Pressure [Left] O2 Sat by Pulse 98 98 Oximetry 12/12/20 12/12/20 12/12/20 20:58 21:03 21:08 Temperature Pulse Rate 99 H 102 H 102 H Respiratory Rate Blood Pressure Blood Pressure [Left] O2 Sat by Pulse 98 99 99 Oximetry 12/12/20 12/12/20 12/12/20 21:13 21:18 21:23 Temperature Pulse Rate 104 H 103 H 96 H Respiratory Rate Blood Pressure Blood Pressure [Left] O2 Sat by Pulse 97 98 98 Oximetry 12/12/20 12/12/20 12/12/20 21:28 21:33 21:38 Temperature Pulse Rate 98 H 104 H 93 H Respiratory Rate Blood Pressure Blood Pressure [Left] O2 Sat by Pulse 98 99 98 Oximetry 12/12/20 12/12/20 12/12/20 21:43 21:45 21:48 Temperature Pulse Rate 97 H 95 H 96 H Respiratory Rate Blood Pressure 139/84 Blood Pressure [Left] O2 Sat by Pulse 99 100 Oximetry 12/12/20 12/12/20 12/12/20 21:53 21:58 22:03 Temperature Pulse Rate 97 H 98 H 94 H Respiratory Rate Blood Pressure Blood Pressure [Left] O2 Sat by Pulse 99 99 99 Oximetry 12/12/20 12/12/20 12/12/20 22:08 22:13 22:18 Temperature Pulse Rate 107 H 109 H 104 H Respiratory Rate Blood Pressure Blood Pressure [Left] O2 Sat by Pulse 98 98 98 Oximetry 12/12/20 12/12/20 12/12/20 22:23 22:28 22:33 Temperature Pulse Rate 100 H 102 H 100 H Respiratory Rate Blood Pressure Blood Pressure [Left] O2 Sat by Pulse 98 98 98 Oximetry 12/12/20 12/12/20 12/12/20 22:35 22:38 22:43 Temperature 99.9 F H Pulse Rate 92 H 96 H Respiratory Rate Blood Pressure Blood Pressure [Left] O2 Sat by Pulse 97 98 Oximetry 12/12/20 12/12/20 12/12/20 22:48 22:53 22:58 Temperature Pulse Rate 112 H 116 H 89 Respiratory Rate Blood Pressure Blood Pressure [Left] O2 Sat by Pulse 97 99 98 Oximetry 12/12/20 12/12/20 12/12/20 23:03 23:08 23:13 Temperature Pulse Rate 90 92 H 98 H Respiratory Rate Blood Pressure Blood Pressure [Left] O2 Sat by Pulse 97 98 97 Oximetry 12/12/20 12/12/20 12/12/20 23:18 23:23 23:28 Temperature Pulse Rate 104 H 104 H 101 H Respiratory Rate Blood Pressure Blood Pressure [Left] O2 Sat by Pulse 97 97 97 Oximetry 12/12/20 12/12/20 12/12/20 23:33 23:38 23:43 Temperature Pulse Rate 93 H 83 114 H Respiratory Rate Blood Pressure Blood Pressure [Left] O2 Sat by Pulse 97 98 98 Oximetry 12/12/20 12/12/20 12/12/20 23:48 23:53 23:58 Temperature Pulse Rate 91 H 94 H 91 H Respiratory Rate Blood Pressure Blood Pressure [Left] O2 Sat by Pulse 97 98 98 Oximetry 12/13/20 12/13/20 12/13/20 00:03 00:08 00:13 Temperature Pulse Rate 91 H 99 H 109 H Respiratory Rate Blood Pressure Blood Pressure [Left] O2 Sat by Pulse 98 99 100 Oximetry 12/13/20 12/13/20 12/13/20 00:18 00:23 00:28 Temperature 98.3 F Pulse Rate 103 H 117 H 96 H Respiratory Rate Blood Pressure Blood Pressure [Left] O2 Sat by Pulse 99 99 99 Oximetry 12/13/20 12/13/20 12/13/20 00:33 00:36 00:38 Temperature Pulse Rate 127 H 134 H 103 H Respiratory Rate Blood Pressure Blood Pressure [Left] O2 Sat by Pulse 98 93 98 Oximetry 12/13/20 12/13/20 12/13/20 00:43 00:48 00:53 Temperature Pulse Rate 100 H 131 H 113 H Respiratory Rate Blood Pressure Blood Pressure [Left] O2 Sat by Pulse 99 99 99 Oximetry 12/13/20 12/13/20 12/13/20 00:58 01:03 01:08 Temperature Pulse Rate 102 H 106 H 126 H Respiratory Rate Blood Pressure Blood Pressure [Left] O2 Sat by Pulse 98 99 100 Oximetry 12/13/20 01:13 Temperature Pulse Rate 107 H Respiratory Rate Blood Pressure Blood Pressure [Left] O2 Sat by Pulse 99 Oximetry - Exam Breasts: deferred Cardiovascular: Regular rate Lungs: Normal air movement FHR: category 1 Uterine Contraction Monitor Mode: External Cervical Dilatation: 10 (vertex with capate) Cervical Effacement Percentage: 100 (Pitocin @ 24mu/min) station: 0 Uterine Contraction Frequency (min): 2-3 Uterine Contraction Pattern: Irregular Uterine Tone Measurement Phase: Resting Uterine Contraction Intensity: Strong/Firm Extremities: normal - Labs Labs: Abnormal Labs 12/12/20 06:29 Hgb 9.4 L Hct 29.3 L MCH 26 L RDW 16.5 H Laboratory Results - last 24 hr 12/12/20 12/12/20 12/12/20 06:29 06:29 06:29 WBC 10.3 RBC 3.70 Hgb 9.4 L Hct 29.3 L MCV 79 MCH 26 L MCHC 32 RDW 16.5 H Plt Count 181 Syphilis IgG Antibody Nonreactive Coronavirus (PCR) Blood Type A POSITIVE Antibody Screen Negative 12/12/20 Unknown WBC RBC Hgb Hct MCV MCH MCHC RDW Plt Count Syphilis IgG Antibody Coronavirus (PCR) Negative Blood Type Antibody Screen
[2020-12-13] MEDS ORDERED: NALOXONE 0.4 MG/1 ML INJ IV PRN ×2 (01:39→03:07)
[2020-12-13] MEDS ORDERED: ONDANSETRON 4 MG/2 ML INJ IV PRN ×2 (01:39→03:07)
[2020-12-13] MEDS ORDERED: HYDROmorphone 1 MG/1 ML INJ IV PRN (01:39)
--- NOTE | 2020-12-13 01:39 | Anesthesia Day of Surgery ---
Anesthesia Day of Surgery - Day of Surgery Patient Examined: Yes Patient H&P Reviewed: Yes Patient is NPO: Yes Beta Blockers: No Cardiac Clearance: No Pulmonary Clearance: No Ihsan's Test: N/A
[2020-12-13] MEDS ORDERED: BICITRA ORAL LIQD 30ML PO ONE (01:40)
[2020-12-13] MEDS ORDERED: METOCLOPRAMIDE 10 MG/2 ML INJ IV ONE (01:40)
--- NOTE | 2020-12-13 01:54 | Progress Note ---
Labor Epidural - Labor Epidural Start Time: 10:59 Stop Time: 11:02 Performed by:: ASHLI PEREZ Procedure: Patient is requesting a laboring epidural for laboring pain. Patient IDed, H&P reviewed, all questions and concerns were answered, and consent was signed. Timeout was performed at bedside. Patient in sitting position. Sterile prep and drape was performed. [3] ml of 1% lidocaine skin wheal at L[3]- L [4]. 18- gauge Touhy epidural needle was advanced to loss of resistance with air technique. Negative CSF negative blood. Epidural catheter advanced to [12] centimeters. [NEGATIVE] Aspiration [NEGATIVE] test dose. Sterile dressing applied. Patient tolerated procedure.
[2020-12-13] MEDS ORDERED: ceFAZolin/Water 2 GM/20 ML 2 GM/20 ML SYRINGE IV NR (02:00)
[2020-12-13] MEDS ORDERED: BUPIVACAINE/PF (0.5%) 5 MG/1 ML 30 ML VIAL INFILTRATI ONE (02:11)
[2020-12-13] MEDS ORDERED: dexAMETHasone 20 MG/5 ML VIAL ONE (02:11)
[2020-12-13] MEDS ORDERED: SODIUM CHLORIDE 0.9% 100 ML ONE (02:14)
[2020-12-13] MEDS ORDERED: CARBOPROST TROMETHAMINE 250 MCG/1 ML INJ IM ONE ×2 (02:15)
[2020-12-13] MEDS ORDERED: KETOROLAC 30 MG/1 ML INJ ONE (02:43)
[2020-12-13] MEDS ORDERED: ceFAZolin/STERILE WATER 2 GM/20 ML SYRINGE IV ONE (02:50)
[2020-12-13] MEDS ORDERED: SODIUM CHLORIDE 0.9% IRR 1,500 ML BOTTLE IR ONE (02:50)
[2020-12-13] MEDS ORDERED: WATER FOR IRRIG STERILE 1,500 ML BOTTLE IR ONE (02:50)
[2020-12-13] MEDS ORDERED: SENNOSIDES 8.6 MG TAB PO PRN (03:07)
[2020-12-13] MEDS ORDERED: ACETAMINOPHEN 325 MG TAB PO PRN (03:07)
[2020-12-13] MEDS ORDERED: SIMETHICONE 80 MG CHEW TAB PO PRN (03:07)
[2020-12-13] MEDS ORDERED: HYDROCORTISONE 25 MG RECTAL SUPP PR PRN (03:07)
[2020-12-13] MEDS ORDERED: LANOLIN/ZINC/DIMETHICONE (LANSINOH) 7 GM TP PRN (03:07)
[2020-12-13] MEDS ORDERED: MORPHINE 4 MG/1 ML INJ IV PRN (03:07)
[2020-12-13] MEDS ORDERED: PROMETHAZINE 25 MG RECT SUPP PR PRN (03:07)
[2020-12-13] MEDS ORDERED: MAGNESIUM HYDROXIDE (MOM) ORAL LIQD UDC PO PRN (03:07)
[2020-12-13] MEDS ORDERED: WITCH HAZEL/ GLYCERIN PAD TP PRN (03:07)
--- NOTE | 2020-12-13 03:10 | Procedure Note ---
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 Findings: Normal uterus, tubes and ovaries. Clear fluid. No nuchal cord. [place]-tinged urine at beginning procedure. Uterine atony resolved with Methergine x1 and Hemabate x1. Delivery male infant at 0228 Height 19.25 inches Weight 3362 g Apgars 8/9 EBL 600 cc IVF 800 cc UOP 100 cc, blood tinged at beginning of procedure Procedure: Patient was taken to the operating room prepped and draped in the usual sterile fashion. Pfannenstiel skin incision was made and carried down to the underlying fascia. Fascia was incised and the incision was distended bilaterally. Rectus fascia was dissected off the rectus muscle superiorly and inferiorly. Peritoneum was identified and entered. Peritoneal incision extended superiorly and inferiorly. The bladder was visualized. The bladder blade was placed. Uterine hysterotomy incision was made and extended bilaterally. The baby was delivered in the typical vertex fashion. Baby was bulb suction at delivery. The cord was cut and clamped and handed off to the team. The placenta was delivered spontaneously. The uterus was exteriorized and cleared of all clots and debris. Uterine incision was closed with a 0 Vicryl in a running locked fashion. A single [id number] suture was used at the uterine incision to provide hemostasis. given uterine atony, Methergine x1 followed by Hemabate x1 were given with resolution of atony. Hemoblast was applied to the uterine incisional base. Good hemostasis was noted. The urine was noted to go from pink-tinged to clear. Uterus, tubes, and ovaries were returned to the abdominal cavity. Bilateral gutters were cleared and the abdomen and pelvis were irrigated. Good hemostasis noted. The rectus muscle was reapproximated with 2-0 Vicryl. Attention was directed towards the rectus fascia which was reapproximated with 0 PDS in a running fashion. The subcutaneous tissue was irrigated and reapproximated with 2-0 Vicryl in a running fashion. Skin was closed with a 4-0 Vicryl in a subcuticular fashion. The procedure was completed and the patient tolerated the procedure well. All instruments and lap counts were correct x2. - Infant A at 1 minute: 8 at 5 minutes: 9 Infant Gender: Male
--- NOTE | 2020-12-13 03:30 | Progress Note ---
Subjective Date of service: 12/13/20 Principal diagnosis: Regional block for postop painb s/p csection Interval history: Patient consented for TAP block for post surgical pain management. Patient identified, monitors placed, and time out performed. TAP identified bilaterally via ultrasound. Skin prepped bilaterally with [chlorhexidine] and [22g stimuplex] needle advanced to the TAP. [Marcaine 0.22% 35ml] injected under ultrasound guidance on the [left] side. [Marcaine 0.22% 35ml] injected under ultrasound guidance on the [right] side. Negative aspiration every 5mL, No change in heart rate or rhythm. Patient tolerated the procedure well. No apparent complications seen. Objective - Constitutional Vitals: Vital Signs - 12hr 12/12/20 12/12/20 12/12/20 15:33 15:38 15:43 Temperature Pulse Rate 80 76 76 Respiratory Rate Blood Pressure Blood Pressure [Left] O2 Sat by Pulse 98 97 97 Oximetry 12/12/20 12/12/20 12/12/20 15:46 15:48 15:53 Temperature Pulse Rate 78 88 80 Respiratory Rate Blood Pressure 124/71 Blood Pressure [Left] O2 Sat by Pulse 96 97 Oximetry 12/12/20 12/12/20 12/12/20 15:58 16:03 16:08 Temperature Pulse Rate 88 85 81 Respiratory Rate Blood Pressure Blood Pressure [Left] O2 Sat by Pulse 97 98 98 Oximetry 12/12/20 12/12/20 12/12/20 16:13 16:18 16:23 Temperature Pulse Rate 81 82 84 Respiratory Rate Blood Pressure Blood Pressure [Left] O2 Sat by Pulse 97 98 97 Oximetry 12/12/20 12/12/20 12/12/20 16:28 16:33 16:38 Temperature Pulse Rate 82 88 83 Respiratory Rate Blood Pressure Blood Pressure [Left] O2 Sat by Pulse 98 99 98 Oximetry 12/12/20 12/12/20 12/12/20 16:43 16:47 16:48 Temperature Pulse Rate 86 91 H 101 H Respiratory Rate Blood Pressure 124/58 Blood Pressure [Left] O2 Sat by Pulse 99 97 Oximetry 12/12/20 12/12/20 12/12/20 16:53 16:58 17:03 Temperature Pulse Rate 96 H 90 87 Respiratory Rate Blood Pressure Blood Pressure [Left] O2 Sat by Pulse 98 98 97 Oximetry 12/12/20 12/12/20 12/12/20 17:08 17:13 17:18 Temperature Pulse Rate 89 90 91 H Respiratory Rate Blood Pressure Blood Pressure [Left] O2 Sat by Pulse 97 97 97 Oximetry 12/12/20 12/12/20 12/12/20 17:23 17:28 17:33 Temperature Pulse Rate 87 89 94 H Respiratory Rate Blood Pressure Blood Pressure [Left] O2 Sat by Pulse 98 97 97 Oximetry 12/12/20 12/12/20 12/12/20 17:38 17:43 17:46 Temperature Pulse Rate 87 95 H 85 Respiratory Rate Blood Pressure 128/68 Blood Pressure [Left] O2 Sat by Pulse 97 98 Oximetry 12/12/20 12/12/20 12/12/20 17:48 17:53 17:58 Temperature Pulse Rate 94 H 81 87 Respiratory Rate Blood Pressure Blood Pressure [Left] O2 Sat by Pulse 98 97 98 Oximetry 12/12/20 12/12/20 12/12/20 18:03 18:08 18:13 Temperature Pulse Rate 89 85 85 Respiratory Rate Blood Pressure Blood Pressure [Left] O2 Sat by Pulse 98 98 98 Oximetry 12/12/20 12/12/20 12/12/20 18:18 18:23 18:28 Temperature Pulse Rate 87 94 H 85 Respiratory Rate Blood Pressure Blood Pressure [Left] O2 Sat by Pulse 98 98 98 Oximetry 12/12/20 12/12/20 12/12/20 18:33 18:38 18:43 Temperature Pulse Rate 84 91 H 89 Respiratory Rate Blood Pressure Blood Pressure [Left] O2 Sat by Pulse 97 97 97 Oximetry 12/12/20 12/12/20 12/12/20 18:47 18:48 18:53 Temperature Pulse Rate 83 86 80 Respiratory Rate Blood Pressure 120/60 Blood Pressure [Left] O2 Sat by Pulse 97 98 Oximetry 12/12/20 12/12/20 12/12/20 18:58 19:03 19:08 Temperature Pulse Rate 83 82 91 H Respiratory Rate Blood Pressure Blood Pressure [Left] O2 Sat by Pulse 98 98 97 Oximetry 12/12/20 12/12/20 12/12/20 19:13 19:18 19:20 Temperature 99.0 F Pulse Rate 90 85 85 Respiratory 18 Rate Blood Pressure 135/74 Blood Pressure 135/74 [Left] O2 Sat by Pulse 98 98 99 Oximetry 12/12/20 12/12/20 12/12/20 19:23 19:28 19:33 Temperature Pulse Rate 94 H 111 H 97 H Respiratory Rate Blood Pressure Blood Pressure [Left] O2 Sat by Pulse 98 98 98 Oximetry 12/12/20 12/12/20 12/12/20 19:38 19:43 19:46 Temperature Pulse Rate 91 H 89 88 Respiratory Rate Blood Pressure 133/82 Blood Pressure [Left] O2 Sat by Pulse 99 98 Oximetry 12/12/20 12/12/20 12/12/20 19:48 19:53 19:58 Temperature Pulse Rate 90 92 H 96 H Respiratory Rate Blood Pressure Blood Pressure [Left] O2 Sat by Pulse 99 99 99 Oximetry 12/12/20 12/12/20 12/12/20 20:03 20:08 20:13 Temperature Pulse Rate 89 96 H 101 H Respiratory Rate Blood Pressure Blood Pressure [Left] O2 Sat by Pulse 98 98 98 Oximetry 12/12/20 12/12/20 12/12/20 20:18 20:23 20:25 Temperature Pulse Rate 98 H 98 H 98 H Respiratory Rate Blood Pressure Blood Pressure [Left] O2 Sat by Pulse 99 98 93 Oximetry 12/12/20 12/12/20 12/12/20 20:28 20:33 20:38 Temperature Pulse Rate 95 H 99 H 99 H Respiratory Rate Blood Pressure Blood Pressure [Left] O2 Sat by Pulse 98 98 98 Oximetry 12/12/20 12/12/20 12/12/20 20:43 20:45 20:48 Temperature Pulse Rate 95 H 102 H 104 H Respiratory Rate Blood Pressure 136/83 Blood Pressure [Left] O2 Sat by Pulse 98 98 Oximetry 12/12/20 12/12/20 12/12/20 20:53 20:58 21:03 Temperature Pulse Rate 105 H 99 H 102 H Respiratory Rate Blood Pressure Blood Pressure [Left] O2 Sat by Pulse 98 98 99 Oximetry 12/12/20 12/12/20 12/12/20 21:08 21:13 21:18 Temperature Pulse Rate 102 H 104 H 103 H Respiratory Rate Blood Pressure Blood Pressure [Left] O2 Sat by Pulse 99 97 98 Oximetry 12/12/20 12/12/20 12/12/20 21:23 21:28 21:33 Temperature Pulse Rate 96 H 98 H 104 H Respiratory Rate Blood Pressure Blood Pressure [Left] O2 Sat by Pulse 98 98 99 Oximetry 12/12/20 12/12/20 12/12/20 21:38 21:43 21:45 Temperature Pulse Rate 93 H 97 H 95 H Respiratory Rate Blood Pressure 139/84 Blood Pressure [Left] O2 Sat by Pulse 98 99 Oximetry 12/12/20 12/12/20 12/12/20 21:48 21:53 21:58 Temperature Pulse Rate 96 H 97 H 98 H Respiratory Rate Blood Pressure Blood Pressure [Left] O2 Sat by Pulse 100 99 99 Oximetry 12/12/20 12/12/20 12/12/20 22:03 22:08 22:13 Temperature Pulse Rate 94 H 107 H 109 H Respiratory Rate Blood Pressure Blood Pressure [Left] O2 Sat by Pulse 99 98 98 Oximetry 12/12/20 12/12/20 12/12/20 22:18 22:23 22:28 Temperature Pulse Rate 104 H 100 H 102 H Respiratory Rate Blood Pressure Blood Pressure [Left] O2 Sat by Pulse 98 98 98 Oximetry 12/12/20 12/12/20 12/12/20 22:33 22:35 22:38 Temperature 99.9 F H Pulse Rate 100 H 92 H Respiratory Rate Blood Pressure Blood Pressure [Left] O2 Sat by Pulse 98 97 Oximetry 12/12/20 12/12/20 12/12/20 22:43 22:48 22:53 Temperature Pulse Rate 96 H 112 H 116 H Respiratory Rate Blood Pressure Blood Pressure [Left] O2 Sat by Pulse 98 97 99 Oximetry 12/12/20 12/12/20 12/12/20 22:58 23:03 23:08 Temperature Pulse Rate 89 90 92 H Respiratory Rate Blood Pressure Blood Pressure [Left] O2 Sat by Pulse 98 97 98 Oximetry 12/12/20 12/12/20 12/12/20 23:13 23:18 23:23 Temperature Pulse Rate 98 H 104 H 104 H Respiratory Rate Blood Pressure Blood Pressure [Left] O2 Sat by Pulse 97 97 97 Oximetry 12/12/20 12/12/20 12/12/20 23:28 23:33 23:38 Temperature Pulse Rate 101 H 93 H 83 Respiratory Rate Blood Pressure Blood Pressure [Left] O2 Sat by Pulse 97 97 98 Oximetry 12/12/20 12/12/20 12/12/20 23:43 23:48 23:53 Temperature Pulse Rate 114 H 91 H 94 H Respiratory Rate Blood Pressure Blood Pressure [Left] O2 Sat by Pulse 98 97 98 Oximetry 12/12/20 12/13/20 12/13/20 23:58 00:03 00:08 Temperature Pulse Rate 91 H 91 H 99 H Respiratory Rate Blood Pressure Blood Pressure [Left] O2 Sat by Pulse 98 98 99 Oximetry 12/13/20 12/13/20 12/13/20 00:13 00:18 00:23 Temperature 98.3 F Pulse Rate 109 H 103 H 117 H Respiratory Rate Blood Pressure Blood Pressure [Left] O2 Sat by Pulse 100 99 99 Oximetry 12/13/20 12/13/20 12/13/20 00:28 00:33 00:36 Temperature Pulse Rate 96 H 127 H 134 H Respiratory Rate Blood Pressure Blood Pressure [Left] O2 Sat by Pulse 99 98 93 Oximetry 12/13/20 12/13/20 12/13/20 00:38 00:43 00:48 Temperature Pulse Rate 103 H 100 H 131 H Respiratory Rate Blood Pressure Blood Pressure [Left] O2 Sat by Pulse 98 99 99 Oximetry 12/13/20 12/13/20 12/13/20 00:53 00:58 01:03 Temperature Pulse Rate 113 H 102 H 106 H Respiratory Rate Blood Pressure Blood Pressure [Left] O2 Sat by Pulse 99 98 99 Oximetry 12/13/20 12/13/20 12/13/20 01:08 01:13 01:18 Temperature Pulse Rate 126 H 107 H 110 H Respiratory Rate Blood Pressure Blood Pressure [Left] O2 Sat by Pulse 100 99 99 Oximetry 12/13/20 12/13/20 12/13/20 01:19 01:23 01:28 Temperature Pulse Rate 99 H 117 H 108 H Respiratory Rate Blood Pressure Blood Pressure [Left] O2 Sat by Pulse 92 100 99 Oximetry 12/13/20 01:33 Temperature Pulse Rate 115 H Respiratory Rate Blood Pressure Blood Pressure [Left] O2 Sat by Pulse 99 Oximetry - Labs CBC & Chem 7: 12/12/20 06:29 Labs: Abnormal lab results 12/12/20 Range/Units 06:29 Hgb 9.4 L (10.1-14.3) gm/dl Hct 29.3 L (30.3-42.9) % MCH 26 L (28-32) pg RDW 16.5 H (13.2-15.2) %
--- NOTE | 2020-12-13 03:30 | Post Anesthesia Evaluation ---
- Post Anesthesia Evaluation Patient Participated: Yes Airway Patent: Yes Stable Respiratory Function: Yes Nausea/Vomiting: No Temp > 96.8F: Yes Pain Manageable: Yes Adequeate Hydration: Yes Anesthesia Complications: No Block Receding Appropriately: Yes Patient on Ventilator: No
[2020-12-13] MEDS ORDERED: KETOROLAC 30 MG/1 ML INJ IV SCH (04:00)
[2020-12-13] MEDS ORDERED: OXYTOCIN DRIP 30 UNITS/500 ML BAG IV SCH (04:00)
[2020-12-13] MEDS ORDERED: MAGNESIUM SULFATE 4 GM/100 ML BAG IV ONE (04:12)
[2020-12-13] MEDS ORDERED: hydrALAZINE 20 MG/1 ML INJ IV PRN (04:13)
--- NOTE | 2020-12-13 04:17 | Event Note ---
Date: 12/13/20 Called by RN for severe range BPs >160s systolic x 2. No prior BP issues. Will obtain PIH labs and proceed with magnesium per protocol for seizure ppx x 24H. Now with Preeclampsia with severe features by blood pressure. IV antihypertensive prn severe range BPs.
[2020-12-13] MEDS: MAGNESIUM SULFATE 40GM/1000ML 40 GM/1,000 ML BAG IV SCH (04:50)
[2020-12-13 07:45] LABS: Hematocrit 31.3 % (30.3-42.9); Hemoglobin 9.7 gm/dl (10.1-14.3); Mean Corpuscular HGB Conc 31 % (30-34); Mean Corpuscular Volume 80 fl (79-97); Platelet Count 144 K/mm3 (140-440); Red Cell Distribution Width 16.9 % (13.2-15.2)
[2020-12-13 07:59] LABS: Alanine Aminotransferase 9 units/L (7-56); Albumin 3.1 g/dL (3.9-5); BUN/Creatinine Ratio 10; Blood Urea Nitrogen 9 mg/dL (7-17); Calcium 8.7 mg/dL (8.4-10.2); Hemolysis Index 3
[2020-12-13 08:51] LABS: Anisocytosis 1+; Band Neutrophils # (Manual) 0.2 K/mm3; Hypochromasia 1+; Total Cells Counted 100
[2020-12-13 08:52] LABS: Platelet Estimate Consistent w Auto
[2020-12-13] MEDS: IBUPROFEN 800 MG TAB PO PRN (10:03)
[2020-12-13] MEDS: FLUoxetine 20 MG CAP PO SCH (10:05)
[2020-12-13 15:19] LABS: Hematocrit 26.7 % (30.3-42.9); Hemoglobin 8.4 gm/dl (10.1-14.3)
[2020-12-13] MEDS: oxyCODONE /ACETAMINOPHEN 5-325MG TAB PO PRN (16:48)
[2020-12-13] MEDS: CLINDAMYCIN 300 MG CAP PO SCH (20:28)
[2020-12-14] MEDS: MAGNESIUM SULFATE 40GM/1000ML 40 GM/1,000 ML BAG IV SCH (00:40)
[2020-12-14] MEDS: oxyCODONE /ACETAMINOPHEN 5-325MG TAB PO PRN ×4 (03:34→23:36)
[2020-12-14] MEDS: CLINDAMYCIN 300 MG CAP PO SCH ×2 (09:28→18:31)
--- NOTE | 2020-12-14 09:36 | Progress Note ---
Assessment and Plan A: S/P PRIMARY LTCS P: Continue routine pp care D/C clindamycin Encourage ambulation D/C home in 24-48 hours if stable Subjective - Subjective Date of service: 12/14/20 Principal diagnosis: Regional block for postop painb s/p csection Patient reports: appetite normal, voiding normally, pain well controlled, flatus, ambulating normally : doing well, bottle feeding Objective - Vital Signs Latest vital signs: Vital Signs Temp Pulse Resp BP BP Pulse Ox 12/14/20 08:02 97.7 F 92 H 18 144/81 97 12/14/20 05:37 98.1 F 88 20 123/75 97 12/14/20 04:34 18 12/14/20 04:20 84 97 12/14/20 04:15 85 95 12/14/20 04:10 85 95 12/14/20 04:09 83 94 12/14/20 04:05 84 95 12/14/20 04:03 86 94 12/14/20 04:00 84 95 12/14/20 03:55 83 97 12/14/20 03:50 83 97 12/14/20 03:49 82 123/70 12/14/20 03:45 79 97 12/14/20 03:40 83 96 12/14/20 03:35 91 H 97 12/14/20 03:34 18 12/14/20 03:30 87 98 12/14/20 03:25 84 96 12/14/20 03:20 90 98 12/14/20 03:19 90 94 12/14/20 03:15 90 98 12/14/20 03:10 87 96 12/14/20 03:05 86 96 12/14/20 03:00 87 98 12/14/20 02:55 87 96 12/14/20 02:50 85 97 12/14/20 02:49 85 114/61 12/14/20 02:45 96 H 98 12/14/20 02:40 86 97 12/14/20 02:35 85 95 12/14/20 02:31 88 94 12/14/20 02:30 83 96 12/14/20 02:25 85 96 12/14/20 02:20 85 96 12/14/20 02:15 81 99 12/14/20 02:10 82 99 12/14/20 02:05 82 98 01/28/21 02:00 85 96 12/14/20 01:55 89 98 12/14/20 01:50 94 H 98 12/14/20 01:49 92 H 125/69 12/14/20 01:45 89 96 12/14/20 01:40 94 H 98 12/14/20 01:35 90 97 12/14/20 01:34 91 H 92 12/14/20 01:30 91 H 93 12/14/20 01:25 86 93 12/14/20 01:20 86 94 12/14/20 01:17 89 94 12/14/20 01:15 89 95 12/14/20 01:11 89 94 12/14/20 01:10 88 96 12/14/20 01:05 88 97 12/14/20 01:00 88 98 12/14/20 00:55 90 97 12/14/20 00:50 87 98 12/14/20 00:49 87 126/75 12/14/20 00:45 87 98 12/14/20 00:40 86 98 12/14/20 00:35 89 98 12/14/20 00:30 87 97 12/14/20 00:25 83 98 12/14/20 00:20 88 99 12/14/20 00:15 88 97 12/14/20 00:10 87 98 12/14/20 00:05 88 98 12/14/20 00:00 94 H 99 12/13/20 23:55 88 98 12/13/20 23:50 89 98 12/13/20 23:49 88 121/68 12/13/20 23:45 91 H 98 12/13/20 23:40 86 99 12/13/20 23:35 88 99 12/13/20 23:30 88 99 12/13/20 23:25 94 H 98 12/13/20 23:20 95 H 98 12/13/20 23:15 91 H 98 12/13/20 23:10 87 99 12/13/20 23:05 88 98 12/13/20 23:00 91 H 99 12/13/20 22:55 89 98 12/13/20 22:50 87 98 12/13/20 22:49 82 131/73 12/13/20 22:45 90 99 12/13/20 22:40 91 H 99 01/27/21 22:35 93 H 99 12/13/20 22:30 91 H 98 12/13/20 22:25 86 98 12/13/20 22:20 89 98 12/13/20 22:15 93 H 98 12/13/20 22:10 91 H 98 12/13/20 22:05 89 98 12/13/20 22:00 91 H 99 12/13/20 21:55 91 H 99 12/13/20 21:50 96 H 127/64 99 12/13/20 21:48 102 H 94 12/13/20 21:45 90 97 12/13/20 21:40 91 H 99 12/13/20 21:35 92 H 99 12/13/20 21:30 95 H 98 12/13/20 21:25 83 99 12/13/20 21:20 86 98 12/13/20 21:15 85 99 12/13/20 21:10 91 H 98 12/13/20 21:05 84 100 12/13/20 21:01 18 12/13/20 21:00 89 99 12/13/20 20:55 90 98 12/13/20 20:50 92 H 150/73 99 12/13/20 20:45 86 98 12/13/20 20:40 82 99 12/13/20 20:35 90 99 12/13/20 20:30 92 H 98 12/13/20 20:25 89 98 12/13/20 20:20 88 98 12/13/20 20:15 90 98 12/13/20 20:10 85 99 12/13/20 20:05 91 H 99 12/13/20 20:00 86 99 12/13/20 19:55 84 98 12/13/20 19:50 85 98 12/13/20 19:49 85 142/79 12/13/20 19:45 88 98 12/13/20 19:40 89 98 12/13/20 19:35 89 98 12/13/20 19:30 83 99 12/13/20 19:25 87 97 12/13/20 19:20 86 98 12/13/20 19:15 85 97 12/13/20 19:10 83 98 12/13/20 19:05 82 99 12/13/20 19:00 89 99 12/13/20 18:55 84 99 12/13/20 18:50 86 97 12/13/20 18:49 85 129/68 12/13/20 18:45 86 99 12/13/20 18:40 91 H 99 12/13/20 18:35 89 98 12/13/20 18:30 86 99 12/13/20 18:25 83 98 12/13/20 18:20 86 98 12/13/20 18:15 89 99 12/13/20 18:10 92 H 98 12/13/20 18:05 89 98 12/13/20 18:00 95 H 98 12/13/20 17:55 88 97 12/13/20 17:50 88 97 12/13/20 17:49 85 137/72 12/13/20 17:45 84 98 12/13/20 17:40 96 H 97 12/13/20 17:35 89 98 12/13/20 17:30 91 H 98 12/13/20 17:25 89 98 12/13/20 17:20 91 H 98 12/13/20 17:15 97 H 97 12/13/20 17:10 102 H 97 12/13/20 17:05 96 H 98 12/13/20 17:00 94 H 97 12/13/20 16:55 91 H 98 12/13/20 16:52 85 138/74 12/13/20 16:50 85 123/91 99 12/13/20 16:48 18 12/13/20 16:45 85 98 12/13/20 16:40 92 H 98 12/13/20 16:35 89 98 12/13/20 16:30 89 98 12/13/20 16:25 93 H 97 12/13/20 16:20 89 97 12/13/20 16:15 91 H 98 12/13/20 16:10 90 98 12/13/20 16:05 113 H 99 12/13/20 16:00 89 95 12/13/20 15:55 91 H 95 12/13/20 15:50 84 97 12/13/20 15:49 90 115/59 93 12/13/20 15:45 94 H 96 12/13/20 15:44 98 H 93 12/13/20 15:40 90 96 12/13/20 15:35 83 97 12/13/20 15:30 82 97 12/13/20 15:25 79 98 12/13/20 15:20 82 97 12/13/20 15:15 79 98 12/13/20 15:10 77 97 12/13/20 15:05 88 98 12/13/20 15:00 82 99 12/13/20 14:55 87 98 12/13/20 14:50 80 134/78 98 12/13/20 14:45 84 98 12/13/20 14:40 85 99 12/13/20 14:35 84 98 12/13/20 14:30 88 97 12/13/20 14:25 83 98 12/13/20 14:20 83 98 12/13/20 14:15 89 97 12/13/20 14:10 86 97 12/13/20 14:05 87 96 12/13/20 14:00 85 96 12/13/20 13:55 84 97 12/13/20 13:50 77 97 12/13/20 13:49 82 134/78 12/13/20 13:45 81 98 12/13/20 13:40 83 98 12/13/20 13:35 78 97 12/13/20 13:30 81 98 12/13/20 13:25 86 98 12/13/20 13:20 85 97 12/13/20 13:15 85 98 12/13/20 13:10 84 98 12/13/20 13:05 82 98 12/13/20 13:00 88 98 12/13/20 12:55 83 98 12/13/20 12:50 85 98 12/13/20 12:49 81 137/77 12/13/20 12:45 82 98 12/13/20 12:40 90 98 12/13/20 12:35 98 H 97 12/13/20 12:30 94 H 95 12/13/20 12:25 92 H 95 12/13/20 12:20 90 95 12/13/20 12:15 91 H 95 12/13/20 12:10 91 H 95 12/13/20 12:05 88 95 12/13/20 12:00 87 95 12/13/20 11:58 97.8 F 18 12/13/20 11:55 85 95 12/13/20 11:50 87 95 12/13/20 11:49 88 131/66 94 12/13/20 11:45 92 H 96 12/13/20 11:40 85 96 12/13/20 11:35 92 H 96 12/13/20 11:30 94 H 97 12/13/20 11:25 89 96 12/13/20 11:20 87 97 12/13/20 11:15 87 97 12/13/20 11:10 90 96 12/13/20 11:05 94 H 97 12/13/20 11:00 86 98 12/13/20 10:55 92 H 98 12/13/20 10:50 93 H 143/76 96 12/13/20 10:45 90 98 12/13/20 10:40 89 98 12/13/20 10:35 90 98 12/13/20 10:30 86 96 12/13/20 10:25 83 98 12/13/20 10:20 87 97 12/13/20 10:15 84 96 12/13/20 10:10 86 97 12/13/20 10:05 90 97 12/13/20 10:03 24 12/13/20 10:00 88 98 12/13/20 09:55 85 97 12/13/20 09:50 86 151/81 97 12/13/20 09:45 80 97 12/13/20 09:40 79 96 12/13/20 09:35 83 96 Intake and Output 12/13/20 12/14/20 12/14/20 22:59 06:59 14:59 Intake Total 480 1351.667 120 Output Total 2600 1800 325 Balance -4822 -428.860 -980 Intake: IV 991.667 MAGNESIUM SULFATE 40GM/ 991.667 1000ML 40 gm In 1,000 ml @ 2 GM/HR 50 mls/hr IV DIRECT [facility] Rx#:[id number] Oral 480 360 120 Output: Urine 2600 1800 325 Indwelling 200 Indwelling Catheter 2400 1300 Void 500 325 Other: Total, Intake Amount 480 120 120 Total, Output Amount 800 500 325 - Exam Breasts: Present: normal Abdomen: Present: normal appearance, soft, normal bowel sounds Vulva: both: normal Uterus: Present: normal, firm, fundal height below umbilicus Extremities: Present: normal Incision: Present: normal, dry, intact, dressed - Labs Labs: Abnormal lab results 12/13/20 Range/Units 15:04 Hgb 8.4 L (10.1-14.3) gm/dl Hct 26.7 L (30.3-42.9) %
[2020-12-14] MEDS: valACYclovir 500 MG TAB PO SCH (09:42)
[2020-12-14] MEDS: FERROUS SULFATE 325 MG TAB PO SCH ×2 (09:42→21:19)
[2020-12-14] MEDS: IBUPROFEN 800 MG TAB PO PRN (21:19)
[2020-12-15] MEDS: CLINDAMYCIN 300 MG CAP PO SCH ×2 (02:27→10:29)
[2020-12-15] MEDS: oxyCODONE /ACETAMINOPHEN 5-325MG TAB PO PRN ×2 (05:21→10:30)
[2020-12-15 08:42] VITALS: BP 126/73
--- NOTE | 2020-12-15 10:02 | Discharge Summary ---
Providers - Providers Date of Admission: 12/12/20 06:37 Date of discharge: 12/15/20 Attending physician: SALINAS BYRNE JR, MD Primary care physician: SALINAS BYRNE JR, MD Hospitalization Reason for admission: rupture of membranes Delivery: Procedure: primary low transverse Episiotomy: none Laceration: none Incision: dry, intact Other procedures: none complications: none Discharge diagnosis: IUP at term delivered, other (anemia) baby: male Hospital course: See admission H & P; OB operative summary and PP progress notes Condition at discharge: Stable Disposition: DC-01 TO HOME OR SELFCARE - Discharge Diagnoses (1) Status post primary low transverse section Status: Acute (2) Anemia Status: Acute Qualifiers: Anemia type: iron deficiency Comment: Asymptomatic Plan - Discharge Medications Prescriptions: Ibuprofen [Motrin 800 MG tab] 800 mg PO Q6H PRN #30 tablet PRN Reason: Pain, Mild (1-3) oxyCODONE /ACETAMINOPHEN [Percocet 5/325 mg] 1 tab PO Q6H PRN #30 tablet PRN Reason: Pain, Moderate (4-6) - Provider Discharge Summary Activity: routine, no sex for 6 weeks, no heavy lifting 4 weeks, no strenuous exercise Diet: other (Iron rich diet) Instructions: routine Additional instructions: [] Smoking cessation referral if applicable(refer to patient education folder for contact #) [] Refer to [facility] Booklet Call your doctor immediately for: * Fever > 100.5 * Heavy vaginal bleeding ( >1 pad per hour) * Severe persistent headache * Shortness of breath * Reddened, hot, painful area to leg or breast * Drainage or odor from incision. * Keep incision clean and dry at all times and follow doctor's instructions regarding bathing/showering - Follow up plan Follow up: SALINAS BYRNE JR, MD [Primary Care Provider] - 14 Days
[2020-12-15] MEDS: valACYclovir 500 MG TAB PO SCH (10:29)
[2020-12-15] MEDS: FERROUS SULFATE 325 MG TAB PO SCH (10:31)
== END 2020-12-15 14:00 | disposition home or self-care (01) | DRG 787 ==
LOC: TRG 05:20 → APU 05:23 → LD 05:50 → TRG 06:37 → LD 06:37 → OB 12-14 05:28
PROVIDERS: ADMIT Obstetrics & Gynecology; ATTEND Obstetrics & Gynecology
PROC: 3E0234Z Introduction of Serum, Toxoid and Vaccine into Muscle, Percutaneous Approach (ICD-10-PCS; 2020-12-12)
PROC: 3E0R3BZ Introduction of Anesthetic Agent into Spinal Canal, Percutaneous Approach (ICD-10-PCS; 2020-12-12)
PROC: 00HU33Z Insertion of Infusion Device into Spinal Canal, Percutaneous Approach (ICD-10-PCS; 2020-12-12)
PROC: 10D00Z1 Extraction of Products of Conception, Low, Open Approach (ICD-10-PCS; principal; 2020-12-13)
DX: O62.1 Secondary uterine inertia (principal); O98.82 Other maternal infectious and parasitic diseases complicating childbirth; D62 Acute posthemorrhagic anemia; Z37.0 Single live birth; O99.344 Other mental disorders complicating childbirth; F41.8 Other specified anxiety disorders; Z20.822 Contact with and (suspected) exposure to COVID-19; Z23 Encounter for immunization; Z79.899 Other long term (current) drug therapy; O99.02 Anemia complicating childbirth; A60.00 Herpesviral infection of urogenital system, unspecified
CPT/HCPCS: 36415; 80053; 85007; 85014; 85018; 85025; 85027; 86592; 86850; 86900; 86901; 88307; G0378; J0290; J0690; J1100; J1580; J1885; J2590; J2765; J3475; J7120; U0003

== ENCOUNTER 2021-01-10 19:11 | Emergency (ER) | payer OTHER ==
[2021-01-10 20:00] VITALS: BP 146/90
--- NOTE | 2021-01-10 20:20 | Emergency Department Report ---
ED General Adult HPI - General Chief complaint: Wound/Laceration Stated complaint: C SECTION INCISION BLEEDING Source: patient Mode of arrival: Ambulatory Limitations: No Limitations - History of Present Illness Initial comments: Patient is a 30 yo WF with h/o anxiety and who is 3 weeks through C- section presents to the ED with c/o acute onset persistent mild bleeding small dehisced surgical wound on LLQ abdominal wall for the last 2 hours. Patient states that she suspects that her tight undergarments may have cause the wound to be dehisced. Patient states that she contacted her [facility] physician Dr. Byrne who advised that she be evaluated in the ED. Patient denies fall, traumatic injury, fever, chills, abdominal pain, fever, chills, nausea and vomiting or vis ion changes, back pain or chest pain and dyspnea. MD Complaint: LLQ dehisced surgical wound -: Sudden, hour(s) (2), This evening Location: abdomen (LLQ ) Radiation: non-radiation Severity scale (0 -10): 3 Quality: aching, dull Consistency: constant Improves with: none Worsens with: movement Associated Symptoms: denies other symptoms, other (open surgical wound on LLQ abdominal wall). denies: confusion, chest pain, cough, diaphoresis, fever/chills, headaches, loss of appetite, malaise, nausea/vomiting, rash, seizure, shortness of breath, syncope, weakness Treatments Prior to Arrival: none - Related Data Home Medications Medication Instructions Recorded Confirmed Last Taken [facility] Tablet 1 each PO DAILY 12/12/20 12/12/20 12/11/20 FLUoxetine HCL [Prozac] 20 mg PO DAILY 12/12/20 12/12/20 12/11/20 Montelukast [Singulair] 10 mg PO DAILY 12/12/20 12/12/20 12/11/20 Valacyclovir HCl [Valtrex] 1,000 mg PO DAILY 12/12/20 12/12/20 12/11/20 Previous Rx's Medication Instructions Recorded Last Taken Type Ibuprofen [Motrin 800 MG tab] 800 mg PO Q6H PRN #30 tablet 12/13/20 Unknown Rx oxyCODONE /ACETAMINOPHEN [Percocet 1 tab PO Q6H PRN #30 tablet 12/13/20 Unknown Rx 5/325 mg] cephALEXin [Keflex] 500 mg PO Q8HR #30 cap 01/10/21 Unknown Rx Allergies Allergy/AdvReac Type Severity Reaction Status Date / Time No Known Allergies Allergy Unverified 07/18/20 13:12 ED Review of Systems ROS: Stated complaint: C SECTION INCISION BLEEDING Other details as noted in HPI Constitutional: denies: chills, fever Eyes: denies: eye pain, eye discharge, vision change ENT: denies: ear pain, throat pain Respiratory: denies: cough, shortness of breath, wheezing Cardiovascular: denies: chest pain, palpitations Endocrine: no symptoms reported Gastrointestinal: denies: abdominal pain, nausea, diarrhea Genitourinary: denies: urgency, dysuria, discharge Musculoskeletal: denies: back pain, joint swelling, arthralgia Skin: other (Dehisced LLQ abdominal wall surgical wound). denies: rash, lesions Neurological: denies: headache, weakness, paresthesias Psychiatric: denies: anxiety, depression Hematological/Lymphatic: denies: easy bleeding, easy bruising ED Past Medical Hx - Past Medical History Previous Medical History?: Yes Hx Hypertension: No Hx Heart Attack/AMI: No Hx Diabetes: No Hx Deep Vein Thrombosis: No Hx Liver Disease: No Hx Renal Disease: No Hx Sickle Cell Disease: No Hx Seizures: No Hx Asthma: No Hx COPD: No Hx HIV: No Additional medical history: Anxiety - Surgical History Past Surgical History?: Yes Hx Pacemaker: No Hx Internal Defibrillator: No Additional Surgical History: - Social History Smoking Status: Never Smoker Substance Use Type: None - Medications Home Medications: Home Medications Medication Instructions Recorded Confirmed Last Taken Type [facility] Tablet 1 each PO DAILY 12/12/20 12/12/20 12/11/20 History FLUoxetine HCL [Prozac] 20 mg PO DAILY 12/12/20 12/12/20 12/11/20 History Montelukast [Singulair] 10 mg PO DAILY 12/12/20 12/12/20 12/11/20 History Valacyclovir HCl [Valtrex] 1,000 mg PO DAILY 12/12/20 12/12/20 12/11/20 History Ibuprofen [Motrin 800 MG tab] 800 mg PO Q6H PRN #30 tablet 12/13/20 Unknown Rx oxyCODONE /ACETAMINOPHEN [Percocet 1 tab PO Q6H PRN #30 tablet 12/13/20 Unknown Rx 5/325 mg] cephALEXin [Keflex] 500 mg PO Q8HR #30 cap 01/10/21 Unknown Rx ED Physical Exam - General Limitations: No Limitations General appearance: alert, in no apparent distress - Head Head exam: Present: atraumatic, normocephalic, normal inspection - Eye Eye exam: Present: normal appearance, PERRL, EOMI Pupils: Present: normal accommodation - ENT ENT exam: Present: normal exam, normal orophraynx, mucous membranes moist, TM's normal bilaterally, normal external ear exam - Neck Neck exam: Present: normal inspection, full ROM - Respiratory Respiratory exam: Present: normal lung sounds bilaterally. Absent: respiratory distress, wheezes, rales, stridor, accessory muscle use, decreased breath sounds, prolonged expiratory - Cardiovascular Cardiovascular Exam: Present: regular rate, normal rhythm, normal heart sounds. Absent: systolic murmur, diastolic murmur, rubs, gallop - GI/Abdominal GI/Abdominal exam: Present: soft, normal bowel sounds, other (Dehisced open small surgical wound on LLQ Abdominal wall with mild bleed). Absent: tenderness, rebound, hyperactive bowel sounds, organomegaly, mass, bruit - Extremities Exam Extremities exam: Present: normal inspection, full ROM - Back Exam Back exam: Present: normal inspection, full ROM. Absent: tenderness, CVA tenderness (R), CVA tenderness (L), muscle spasm - Neurological Exam Neurological exam: Present: alert, oriented X3, CN II-XII intact, normal gait - Psychiatric Psychiatric exam: Present: normal affect, normal mood. Absent: depressed, suicidal ideation - Skin Skin exam: Present: warm, dry, intact, normal color, other (Small surgical wound dehiscence with mild bleed on LLQ abdominal wall). Absent: rash ED Course Vital Signs 01/10/21 01/10/21 19:57 20:00 Temperature 98.2 F Pulse Rate 98 H Respiratory 16 Rate Blood Pressure 146/90 O2 Sat by Pulse 99 Oximetry ED Medical Decision Making - Medical Decision Making This is a 30 yo WF with h/o anxiety and who is 3 weeks through C- section presents to the ED with c/o acute onset persistent mild bleeding small dehisced surgical wound on LLQ abdominal wall for the last 2 hours. Patient states that she suspects that her tight undergarments may have cause the wound to be dehisced. Patient states that she contacted her [facility] physician Dr. Byrne who advised that she be evaluated in the ED. In the ED, patient is alert and oriented x 3 and is in no acute distress. The wound was cleaned with normal saline and alcohol wipes, and dress with 2 x 2 gauze and band-aid. Patient was discharged home on prophylaxis antibiotics and advised to follow up with her [facility] physician Dr. Byrne in 2-3 days for reevaluation or return to the ED immediately if symptoms get worse. - Differential Diagnosis Wound dehiscence; Abscess; Cellulitis Critical care attestation.: If time is entered above; I have spent that time in minutes in the direct care of this critically ill patient, excluding procedure time. ED Disposition Clinical Impression: Postoperative wound dehiscence Qualifiers: Encounter type: initial encounter Qualified Code(s): T81.31XA - Disruption of external operation (surgical) wound, not elsewhere classified, initial encounter Disposition: DC- TO HOME OR SELFCARE Is pt being admited?: No Does the pt Need Aspirin: No Condition: Stable Instructions: Wound Dehiscence, [id number] Additional Instructions: Take medications with food, drink plenty of fluids and follow up with your [facility] Physician Dr. Byrne in 2-3 days for reevaluation. Return to the ED immediately if symptoms get worse. Prescriptions: cephALEXin [Keflex] 500 mg PO Q8HR #30 cap Referrals: SALINAS BYRNE JR, MD [Staff Physician] - 3-5 Days Time of Disposition: 20:19 Print Language: TAJIK
== END 2021-01-10 20:29 | disposition home or self-care (01) ==
LOC: ED 19:11
DX: T81.31XA Disruption of external operation (surgical) wound, not elsewhere classified, initial encounter (principal); F41.9 Anxiety disorder, unspecified; Z79.899 Other long term (current) drug therapy; Z98.890 Other specified postprocedural states; Y83.9 Surgical procedure, unspecified as the cause of abnormal reaction of the patient, or of later complication, without mention of misadventure at the time of the procedure; Y92.89 Other specified places as the place of occurrence of the external cause
CPT/HCPCS: 99282